=== PATIENT | female | born 1950 | race Hispanic/Latino ===

== ENCOUNTER 2022-09-04 21:02 | Observation (INO) | payer MEDICARE, SELFPAY ==
[2022-09-04] VITALS (8 sets, daily range): BP systolic 127–164; BP diastolic 75–96; PULSE 79–86; RESP 12–16; TEMP 36.4; O2SAT 94–100
--- NOTE | ~2022-09-04 | MR_ITS ---
EXAMINATION: MR brain/brain stem wo/w con DATE: 09/05/2022 08:00 INDICATION: Stroke TECHNIQUE: Magnetic resonance imaging (MRI) of the brain and brainstem was performed without and with 12 mL Multihance intravenous contrast. Sequences included sagittal and axial T1-weighted SE, axial d iffusion-weighted FS SE, axial T2*-weighted GRE, axial 3D SWAN, axial T2-weighted FLAIR, and axial T2 -weighted FSE. Postcontrast axial and coronal T1-weighted SE was obtained. Apparent diffusion coeffic ient (ADC) maps were created. COMPARISON: Head CT and CT angiogram dated 09/04/2022 FINDINGS: There are no areas of restricted diffusion to suggest acute infarction. No intracranial hemorrhage or abnormal intracranial mass lesion. There are scattered areas of nonspecific increased T2-weighted si gnal intensity in the cerebral white matter, predominantly involving the deep and periventricular whi te matter. There are no intraparenchymal signal abnormalities seen on the other pulse sequences. The ventricles are symmetric and normal in size. There are no abnormal extra-axial fluid collections. Aayush w voids are seen in the cerebral arteries on the T2-weighted sequences consistent with their expected patency. Changes of bilateral intraocular lens replacement. Visualized orbits and soft tissues are unremarkable. There are no areas of abnormal enhancement on the post contrast images. IMPRESSION: 1. No acute intracranial process. 2. Mild to moderate scattered nonspecific white matter T2 hyperintensity with periventricular predomi nance consistent with chronic small vessel ischemic disease. Reviewed, dictated and finalized at location A. IMPRESSION: 1. No acute intracranial process. 2. Mild to moderate scattered nonspecific white matter T2 hyperintensity with p eriventricular predominance consistent with chronic small vessel ischemic disea se.
--- NOTE | ~2022-09-04 | CT_ITS ---
CT ANGIOGRAM NECK AND HEAD History: TIA. Technique: Axial noncontrast imaging of the brain was performed. Serial spiral axial images through t he head and neck were than obtained during arterial phase IV injection of 100 cc of Omnipaque 350. 3- D postprocessing and MIP images were then reconstructed on the remote workstation. Dose reduction valerie hnique was used on this scan by utilizing automated exposure control and iterative reconstruction valerie hnique. The dose-length product (DLP) was 1631.27 mGy-cm. CTA neck findings: Bilateral vertebral arteries are patent. Bilateral common carotid, internal carot id, and external carotid arteries are patent. There is small calcified plaques at the proximal internet sales manager al carotid arteries bilaterally without stenosis. The proximal right internal carotid artery demonstr ates 0% stenosis relative to the normal distal artery lumen diameter. The proximal left internal deleon tid artery demonstrates 0% stenosis relative to the normal distal artery lumen diameter. CTA head findings: Distal vertebral arteries, basilar artery, and posterior cerebral arteries are pat ent. Distal internal carotid arteries, middle cerebral arteries, and anterior cerebral arteries are p atent. No large vessel occlusion. There are atherosclerotic calcifications in the cavernous portions of the distal internal carotid arteries bilaterally with areas of hlup-xq-ffooeyiy stenosis. No aneur ysm identified. Axial noncontrast imaging of the brain demonstrate mild scattered areas of low-attenuation the perive ntricular white matter, consistent with mild chronic microvascular ischemic change. No acute infarct, intracranial hemorrhage, or mass lesion seen. Ventricles and subarachnoid spaces are unremarkable. G ray-white differentiation is otherwise preserved. Impression: Areas of mild to moderate stenosis in the bilateral cavernous portions of the distal internal carotid arteries related to atherosclerotic calcifications. No other significant abnormality evident. Reviewed, dictated and finalized at location M. Impression: Areas of mild to moderate stenosis in the bilateral cavernous portions of the d istal internal carotid arteries related to atherosclerotic calcifications. No other significant abnormality evident.
--- NOTE | ~2022-09-04 | XR_ITS ---
EXAMINATION: XR chest 1V portable Exam Date/Time: 09/04/2022 22:27 CDT HISTORY: TIA Comparison: None. RESULT: Lines, tubes, and devices: None. Lungs and pleura: Clear. Cardiomediastinal silhouette: Unremarkable. Other: No acute osseous or upper abdominal finding. IMPRESSION: No acute cardiopulmonary process. Reviewed, dictated and finalized at location K.
--- NOTE | 2022-09-04 21:24 | ECG_ITS ---
Measurements Intervals [place] Rate: 80 P: 17 IA: 186 QRS: -2 QRSD: 97 T: -3 QT: 408 QTc: 471 Interpretive Statements SINUS RHYTHM BORDERLINE T WAVE ABNORMALITY- ANT/INF LEADS BORDERLINE ECG NO PREVIOUS ECG AVAILABLE FOR COMPARISON Electronically Signed On 09-05-2022 6:40:46 CDT by Efrain Vazquez D.O.
[2022-09-04 21:31] LABS: Glucose Point of Care 75 mg/dl (65-105)
[2022-09-04 22:18] LABS: Basophils Absolute Auto 0.1 K/mm3 (0.0-0.1); Basophils Percent Auto 0.6 % (0.2-1.2); Eosinophils Absolute Auto 0.2 K/mm3 (0-0.3); Eosinophils Percent Auto 1.4 % (0-4.4); Hematocrit 45.7 % (37.0-47.0); Hemoglobin 15.7 g/dL (12.0-15.0); Immature Granulocyte Absolute 0.06 K/mm3 (0.00-0.031); Immature Granulocyte Percent A 0.5 % (0-0.5); Lymphocytes Absolute Auto 2.34 K/mm3 (0.9-3.2); Lymphocytes Percent Auto 21.1 % (18.3-44.2); Mean Corpuscular HGB Conc 34.4 g/dl (32-36); Mean Corpuscular Volume 87.4 fl (80-100); Mean Platelet Volume 9.4 fl (7.4-10.4); Monocytes Absolute Auto 0.8 K/mm3 (0.1-0.6); Monocytes Percent Auto 7.1 % (2.6-8.5); Neutrophils Absolute Auto 7.7 K/mm3 (1.3-6.7); Neutrophils Percent Auto 69.3 % (45.5-73.1); Platelet Count Result 267 k/mm3 (150-375); Red Blood Count 5.23 M/mm3 (4.2-5.4); Red Cell Distribution Width 13.6 % (11.5-14.5); White Blood Count 11.1 K/mm3 (4.5-10.0)
--- NOTE | 2022-09-04 22:30 | ED.GENADULT ---
HPI - General Adult General Chief complaint: Dizziness Stated complaint: confusion Time Seen by Provider: 09/04/22 21:43 History of Present Illness HPI narrative: This is a 72-year-old female history hypertension diabetes presenting ED for an episode of dizziness and dysphagia. Patient was talking her at 8:00 p.m. when she became nauseous, felt dizzy and was having difficulty speaking. This lasted for approximately 5 minutes before resolved on its own. Patient then came to emergency room because her was concerned and wanted her to be checked out. At this time the patient has no complaints. FOR[facility]LY [facility], LATER [facility] Past Medical History Medical History Diabetes Hypertension Exam Narrative: APPEARANCE: No apparent distress. patient is polite and pleasant during the interview Head: atraumatic. EYES: EOMI, NOSE: Atraumatic NECK: Trachea midline RESPIRATORY: No increased rate of breathing CARDIOVASCULAR: RRR, ABDOMINAL: Non-distended MUSCULOSKELETAl: No obvious deformities NEURO: Alert. Cranial nerves 2-12 grossly intact. Sensation light touch, motor function cerebellar function intact for 4 extremities. Gait exam was normal. SKIN:: Warm, dry. Normal color PSYCHIATRIC: Normal affect NIH Stroke Scale/Score (NIHSS) from [email or web address] on 09/04/2022 All calculations should be rechecked by clinician prior to use RESULT SUMMARY: 0 points NIH Stroke Scale INPUTS: 1A: Level of consciousness ?> 0 = Alert; keenly responsive 1B: Ask month and age ?> 0 = Both questions right 1C: 'Blink eyes' & 'squeeze hands' ?> 0 = Performs both tasks 2: Horizontal extraocular movements ?> 0 = Normal 3: Visual goldman ?> 0 = No visual loss 4: Facial palsy ?> 0 = Normal symmetry 5A: Left arm motor drift ?> 0 = No drift for 10 seconds 5B: Right arm motor drift ?> 0 = No drift for 10 seconds 6A: Left leg motor drift ?> 0 = No drift for 5 seconds 6B: Right leg motor drift ?> 0 = No drift for 5 seconds 7: Limb Ataxia ?> 0 = No ataxia 8: Sensation ?> 0 = Normal; no sensory loss 9: Language/aphasia ?> 0 = Normal; no aphasia 10: Dysarthria ?> 0 = Normal 11: Extinction/inattention ?> 0 = No abnormality Course Vital Signs Vital signs: Vital Signs Temperature 97.5 F L 09/04/22 21:07 Pulse Rate 84 09/04/22 21:07 Respiratory Rate 16 09/04/22 21:07 Blood Pressure 150/86 H 09/04/22 21:07 Pulse Oximetry 100 09/04/22 21:07 Temperature 97.5 F L 09/04/22 21:07 Pulse Rate 88 09/05/22 01:40 Respiratory Rate 16 09/05/22 01:40 Blood Pressure 134/84 09/05/22 01:40 Pulse Oximetry 100 09/05/22 01:40 Medical Decision Making MDM Narrative Medical decision making narrative: -Presentation: This is a 72-year-old female presenting with a 5 minute episode of Word-finding difficulty, dizziness and nausea. This occurred at 8:00 p.m.. NIH on arrival is 0. -DDX includes but is not limited to: TIA, CVA, peripheral vertigo -Co-morbidities complicating care: hypertension, diabetes -Social determinants of health: patient is retired messenger office, lives w/ her Clement -Hx from independent Sources: at bedside -Discussion of Management/Consultants: Juan Obando - hospitalist, Ion - Neuro -Independent interpretation of studies: CBC and metabolic panel within normal limits. Chest x-ray is unremarkable. CTA of the head and neck was unremarkable. Independent EKG interpretation: Rhythm [sinus], Rate [80], Jackson -[normal], NJ -[normal], QRS [narrow], QTC [normal], T waves -[negative for concerning inversions], ST Segments - [Negative for concerning elevations] Final interpretations: [Normal Sinus Rhythm] -Procedures: None -Interventions: aspirin -Shared decision making / Disposition: patient be admitted to the hospital for TIA workup. -RX Vital Signs Vital Signs: Vital Signs Temperature 97.5 F L 09/04/22 21:07 Pulse Rate 8
[2022-09-04 22:35] LABS: Alanine Aminotransferase 36 U/L (6-35); Albumin Level 5.1 g/dL (3.5-5.1); Alkaline Phosphatase 55 U/L (38-126); Anion Gap 15 mmol/L (8-16); Aspartate Amino Transferase 59 U/L (14-36); Bilirubin,Total 0.8 mg/dL (0.2-1.3); Blood Urea Nitrogen 24 mg/dL (7-17); Calcium 9.7 mg/dL (8.4-10.2); Carbon Dioxide 22 mmol/L (22-30); Chloride 103 mmol/L (98-107); Estimated CRCL calculation 31 ml/min; Estimated Glomerular Filt Rate 44; Glucose 63 mg/dL (65-110); Potassium 4.1 mmol/L (3.4-5.0); Sodium 140 mmol/L (137-145)
[2022-09-04 23:34] LABS: Magnesium 1.4 mg/dL (1.6-2.3)
[2022-09-05] VITALS (10 sets, daily range): BP systolic 134–188; BP diastolic 84–87; PULSE 70–89; RESP 13–20; TEMP 36.1–36.4; O2SAT 93–100; BMI 25.7
--- NOTE | 2022-09-05 01:56 | ECHO_ITS ---
Patient Info Name: Leyda Holcomb Age: 72 years : 1950 Gender: Female Ht: 62 in Wt: 140 lbs BSA: 1.68 m2 HR: 77 bpm BP: 180 / 87 mmHg Technical Quality: Good Exam Date: 09/05/2022 4:13 PM Exam Location: [facility] Pulmonary Exam Room: [facility] Patient Status: Outpatient Admit Date: 09/05/2022 Staff Ordering Physician: Jessica Krishnan M.A., MD [facility] Physicist: Carolina Lindquist RDCS Attending Provider: Chai Soto MD Referring Physician: Juan ALCOCER; Exam Type: CA echo doppler color flow Study Info Indications - syncope Complete two-dimensional, color flow and Doppler transthoracic echocardiogram is performed. Summary 1. Complete two-dimensional, color flow and Doppler transthoracic echocardiogram is performed. 2. Left ventricular chamber dimension is normal. 3. Left ventricular systolic function is normal, estimated at 60-65%. 4. The left ventricular diastolic function is grade I diastolic dysfunction. 5. E/e' 15 is elevated. 6. There is trace mitral valve regurgitation. 7. No pulmonary hypertension, estimated pulmonary arterial systolic pressure is 21 mmHg. Left Ventricle E/e' 15 is elevated. Left ventricular chamber dimension is normal. Left ventricular systolic function is normal, estimated at 60-65%. The left ventricular diastolic function is grade I diastolic dysfunction. Right Ventricle Right ventricular chamber dimension is normal. Right ventricular systolic function is normal. Left Atria Left atrial chamber dimension is normal. Right Atria Right atrial chamber dimension is normal. Aortic Valve The aortic valve is trileaflet. There is no aortic valve stenosis. There is no aortic valve regurgitation. Pulmonic Valve There is no pulmonic regurgitation. Mitral Valve There is no mitral valve stenosis. There is trace mitral valve regurgitation. Tricuspid Valve There is no tricuspid valve regurgitation. No pulmonary hypertension, estimated pulmonary arterial systolic pressure is 21 mmHg. Pericardium/Pleural There is no pericardial effusion. Inferior Vena Cava Normal inferior vena cava with >50% collapse upon inspiration consistent with normal right atrial pressure, 5 mmHg. Aorta The aortic root size at the sinus of Valsalva is normal. Left Ventricular Outflow Tract Name Value Normal LVOT 2D LVOT Diameter 2.0 cm LVOT Doppler LVOT Peak Gradient 4 mmHg LVOT Mean Gradient 2 mmHg LVOT VTI 22 cm LVOT VTI/AV VTI Ratio 0.8 LVOT Stroke Volume 65 ml LVOT CO 12.2 l/min LVOT CI 7.3 l/min/m2 Pulmonic Valve Name Value Normal RVOT Doppler RVOT Peak Gradient 1 mmHg PV Doppler PV Peak Gradient
--- NOTE | 2022-09-05 01:58 | PM.IMHP ---
H&P: HPI History of Present Illness Date/Time: 09/05/22 01:58 Chief Complaint: 72 years old female with past medical history of hypertension hyperlipidemia diabetes mellitus presented to the hospital with episode of dizziness associated with confusion lasted for 5 minutes resolved completely before she came to the ER patient also has episodes of diarrhea for the past 2 weeks on also according to the hospital blood pressure was uncontrolled patient has history of Del Real's palsy patient denies similar episodes in the past denies fever or chills denies loss of consciousness CTA of head and neck pending report according to the ER physician negative for acute stroke patient will be admitted to the hospital for further evaluation and treatment of probable TIA neurology will be consulted echo and MRI of the brain is pending Review of Systems Review of Systems: Twelve system review negative except above PMFSH Past Medical History Medical History (Updated 09/05/22 @ 02:00 by Jsesica Krishnan MD) Brain TIA Diabetes Hypertension Meds Home Medications and Allergies Allergies Allergy/AdvReac Type Severity Reaction Status Date / Time No Known Allergies Allergy Verified 09/05/22 02:08 Vital Signs Vital Signs - 24 hr 09/04/22 21:07 09/04/22 22:01 09/04/22 22:31 Temperature 97.5 F L Pulse Rate 84 82 81 Respiratory Rate 16 12 15 Blood Pressure 150/86 H 164/96 H 127/75 Pulse Oximetry 100 94 09/04/22 22:45 09/04/22 23:12 09/04/22 23:15 Temperature Pulse Rate 79 84 84 Respiratory Rate 15 14 15 Blood Pressure Pulse Oximetry 99 100 100 09/04/22 23:30 09/04/22 23:51 09/05/22 00:00 Temperature Pulse Rate 86 Respiratory Rate 16 Blood Pressure Pulse Oximetry 97 100 09/05/22 00:15 09/05/22 00:32 09/05/22 00:45 Temperature Pulse Rate 79 85 Respiratory Rate 13 16 Blood Pressure Pulse Oximetry 98 100 93 09/05/22 01:05 09/05/22 01:40 Temperature Pulse Rate 89 88 Respiratory Rate 15 16 Blood Pressure 134/84 Pulse Oximetry 98 100 Exam Narrative: GENERAL: Well appearing, well-nourished, non-toxic, in no acute distress. HEAD: Normocephalic, atraumatic. NECK: Supple. No adenopathy, no masses. RESPIRATORY: Airway patent, respirations nonlabored. Clear to auscultation bilaterally, no rales, rhonchi, wheezing. CARDIOVASCULAR: Regular rate and rhythm without murmurs, rubs, or gallops. Peripheral pulses 2+ and equal bilaterally. ABDOMINAL: Soft, nontender, nondistended, no hepatosplenomegaly. Normoactive BS. MUSCULOSKELETAL: Moves all extremities. Strength/ROM intact without gross deformities or TTP. No edema. No calf tenderness. No chest wall tenderness palpation. SKIN: Warm, dry, normal color. No rashes. NEURO: A&O X3. Speech clear. Cranial nerves II-XII grossly intact. Steady gait. No ataxic movements. PSYCHIATRIC: Appropriate mood and affect. Normal interaction. H&P: Results Labs Labs: Short CBC 09/04/22 Range/Units 21:44 WBC 11.1 H (4.5-10.0) K/mm3 Hgb 15.7 H (12.0-15.0) g/dL Hct 45.7 (37.0-47.0) % Plt Count 267 (150-375) k/mm3 BMP 09/04/22 21:44 Sodium 140 Potassium 4.1 Chloride 103 Carbon Dioxide 22 BUN 24 H Creatinine 1.20 H Glucose 63 L Calcium 9.7 Liver Function 09/04/22 Range/Units 21:44 Total Bilirubin 0.8 (0.2-1.3) mg/dL AST 59 H (14-36) U/L ALT 36 H (6-35) U/L Alkaline Phosphatase 55 (38-126) U/L Albumin 5.1 (3.5-5.1) g/dL Assessment and Plan Assessment and plan (1) Hypertension: Code(s): I10 - Essential (primary) hypertension Status: Acute Assessment and Plan: Permissive hypertension for now due to TIA (2) Diabetes: Code(s): E11.9 - Type 2 diabetes mellitus without complications Status: Acute Assessment and Plan: Insulin sliding scale pending home medication reconciliation (3) Hyperlipidemia: Code(s): E78.5 - Hyperlipidem
[2022-09-05] MEDS: ASPIRIN 81 MG CHEWABLE TABLET 324 MG PO (02:39)
[2022-09-05 02:41] LABS: Glucose Point of Care 91 mg/dl (65-105)
--- NOTE | 2022-09-05 03:01 | ADMGEN ---
This patient, Leyda Holcomb, was admitted to [facility] Surg Room 315-02. Patient/family oriented to hospital policies and general routines including ID bracelet, bed and alarms, visiting hours, pain management, procedures, bathroom and other care routines, personal items, smoking policy, room service/diet, and visiting hours. Information on how to activate the Rapid Response Team has been discussed. Patient/Family are encouraged to report perceived risks to care and to ask questions if they do not understand what they are told or what they should do.
[2022-09-05 03:51] LABS: Basophils Absolute Auto 0.1 K/mm3 (0.0-0.1); Basophils Percent Auto 0.7 % (0.2-1.2); Eosinophils Absolute Auto 0.1 K/mm3 (0-0.3); Hematocrit 40.7 % (37.0-47.0); Hemoglobin 14.1 g/dL (12.0-15.0); Immature Granulocyte Absolute 0.05 K/mm3 (0.00-0.031); Immature Granulocyte Percent A 0.6 % (0-0.5); Lymphocytes Absolute Auto 2.49 K/mm3 (0.9-3.2); Mean Corpuscular HGB Conc 34.6 g/dl (32-36); Mean Corpuscular Hemoglobin 29.8 pg (26-34); Mean Platelet Volume 8.9 fl (7.4-10.4); Monocytes Absolute Auto 0.5 K/mm3 (0.1-0.6); Monocytes Percent Auto 6.2 % (2.6-8.5); Neutrophils Absolute Auto 5.4 K/mm3 (1.3-6.7); Neutrophils Percent Auto 62.5 % (45.5-73.1); Platelet Count Result 231 k/mm3 (150-375); Red Blood Count 4.73 M/mm3 (4.2-5.4); Red Cell Distribution Width 13.4 % (11.5-14.5); White Blood Count 8.6 K/mm3 (4.5-10.0)
[2022-09-05 04:03] LABS: Cholesterol 98 mg/dL (0-200); HDL Direct 37 mg/dL; Triglycerides 84 mg/dL (<150)
[2022-09-05 04:14] LABS: LDL Cholesterol Direct 42 mg/dL
[2022-09-05 04:18] LABS: Alanine Aminotransferase 31 U/L (6-35); Albumin Level 4.2 g/dL (3.5-5.1); Alkaline Phosphatase 49 U/L (38-126); Anion Gap 10 mmol/L (8-16); Aspartate Amino Transferase 42 U/L (14-36); Bilirubin,Total 0.5 mg/dL (0.2-1.3); Blood Urea Nitrogen 24 mg/dL (7-17); Calcium 9.2 mg/dL (8.4-10.2); Carbon Dioxide 26 mmol/L (22-30); Chloride 101 mmol/L (98-107); Estimated CRCL calculation 32 ml/min; Estimated Glomerular Filt Rate 49; Glucose 68 mg/dL (65-110); Potassium 3.8 mmol/L (3.4-5.0); Sodium 137 mmol/L (137-145)
[2022-09-05 08:10] LABS: Glucose Point of Care 57 mg/dl (65-105)
--- NOTE | 2022-09-05 08:14 | PC.NURSE ---
Blood sugar 57. Snack provided per pt request. Breakfast trays available at this time. Will monitor.
[2022-09-05] MEDS: SIMVASTATIN 20 MG TABLET 40 MG PO (09:11)
[2022-09-05] MEDS: ASPIRIN 81 MG ENTERIC TABLET PO (09:11)
[2022-09-05] MEDS: FAMOTIDINE 20 MG TABLET PO (09:11)
--- NOTE | 2022-09-05 09:49 | WPDNEURCNPN ---
Assessment and Plan Assessment and plan (1) Lightheadedness: Code(s): R42 - Dizziness and giddiness Status: Acute (2) Hyperlipidemia: Code(s): E78.5 - Hyperlipidemia, unspecified Status: Acute (3) Hypertension: Code(s): I10 - Essential (primary) hypertension Status: Acute (4) Diabetes: Code(s): E11.9 - Type 2 diabetes mellitus without complications Status: Acute Plan Leyda Holcomb is a 72 year old female with a history of hypertension, hyperlipidemia, diabetes presenting due to concerns for dizziness/lightheadedness that self-resolved within a few minutes. MRI brain is negative for acute stroke. Patient reports diarrhea with some concerns for dehydration. Seems more likely to be presyncopal episode. Patient vehemently denies any involvement of her speech. - We discussed the option of continuing aspirin since she has multiple stroke risk factors - Continue rosuvastatin 20mg daily - Surface echocardiogram pending - Ok to discharge after echocardiogram Consult date: 09/05/22 Reason for consult: TIA HPI: Leyda Holcomb is a 72 year old female with a history of hypertension, hyperlipidemia, diabetes presenting due to concerns for dizziness and lightheadedness. Patient's last known well is 09/04 around 8pm. She developed at that time, dizziness and lightheadedness. Patient denies any word finding difficulties or slurred speech. The episode lasted about five minutes and then self-resolved. When she presented to the ED her NIH score was 0. Her blood pressure was in the 130-150s. Her EKG showed normal sinus rhythm. LDL is 43. CT head was unrevealing. CTA showed areas of mild to moderate stenosis in bilateral cavernous portions of distal internal carotid arteries related to atherosclerotic calcifications. She has also had an MRI brain which was negative for acute stroke. She was not take aspirin, but has been started on it during this admission. She does already take rosuvastatin 20mg daily. Patient reports that she has had diarrhea for the past week, and has not been hydrating as well as she should. She has also been nauseated lately. Review of Systems Constitutional: Constitutional: Denies chills, Denies fever(s) and Denies weight loss Eyes: Eyes: Denies diplopia and Denies loss of vision ENT: Reports dizziness, Denies hearing loss and Denies tinnitus Cardiovascular: Cardiovascular: Denies chest pain, Denies syncope and Denies dyspnea Respiratory: Respiratory: Denies cough, Denies dyspnea and Denies wheezing Gastrointestinal: Gastrointestinal: Denies abdominal pain, Denies change in bowel habits, Reports diarrhea, Reports nausea and Denies vomiting Genitourinary: Genitourinary: Denies urinary incontinence Musculoskeletal: Musculoskeletal: Denies arthralgias and Denies joint swelling Integumentary/Breasts: Skin/Breast: Denies new lesions and Denies rash Neurologic: Reports as per HPI, Denies dizziness, Denies syncope and Denies loss of vision Psychiatric: Psychiatric: Denies anxiety and Denies depression Endocrine: Endocrine: Denies cold intolerance and Denies heat intolerance Hematologic/Lymphatic: Hematologic/Lymphatic: Denies easy bleeding and Denies easy bruising Allergic/Immunologic: Allergic/Immunologic: Denies no additional allergic/immunologic complaints and Denies wheezing PMFSH Past Medical History Medical History Brain TIA Diabetes Hypertension Social History Social History Smoking status: Never smoker Alcohol intake: never Substance use: never Substance use type: does not use Lack of Transportation: No Lack of Food: Never True Current Housing: I Have Housing Concerned About Future Housing: No Difficulty Paying Gas/Electric Bills: No Difficulty Paying for Meds: No Currently Unemployed: No Education: High School Diploma/
[2022-09-05 11:53] LABS: Glucose Point of Care 221 mg/dl (65-105)
[2022-09-05] MEDS: INSULIN ASPART (*BKC) 100 UNITS/ML SUB-Q (13:02)
--- NOTE | 2022-09-05 14:09 | PM.DS ---
DS: Admitting Diagnosis Discharge Date 09/05/2022 Admitting Diagnosis Dizziness DS: Discharge Diagnosis Discharge Diagnosis (1) Lightheadedness: Code(s): R42 - Dizziness and giddiness Status: Acute (2) Hyperlipidemia: Code(s): E78.5 - Hyperlipidemia, unspecified Status: Acute (3) Hypertension: Code(s): I10 - Essential (primary) hypertension Status: Acute (4) Diabetes: Code(s): E11.9 - Type 2 diabetes mellitus without complications Status: Acute DS: Summary Hospital Course Hospital Course: Leyda Holcomb is a 72 year old female with a history of hypertension, hyperlipidemia, diabetes presenting due to concerns for dizziness and lightheadedness. Patient's last known well is 09/04 around 8pm. She developed at that time, dizziness and lightheadedness. Patient denies any word finding difficulties or slurred speech. The episode lasted about five minutes and then self-resolved. When she presented to the ED her NIH score was 0. Her blood pressure was in the 130-150s. Her EKG showed normal sinus rhythm. LDL is 43. CT head was unrevealing. CTA showed areas of mild to moderate stenosis in bilateral cavernous portions of distal internal carotid arteries related to atherosclerotic calcifications. She has also had an MRI brain which was negative for acute stroke. She was not take aspirin, but has been started on it during this admission. She does already take rosuvastatin 20mg daily. Patient reports that she has had diarrhea for the past week, and has not been hydrating as well as she should. She has also been nauseated lately. Neurology was consulted. mRI brain is negative for acute stroke. Seems more likely to be presyncopal episode. - We discussed the option of continuing aspirin since she has multiple stroke risk factors - Continue rosuvastatin 20mg daily - Surface echocardiogram pending - Ok to discharge after echocardiogram Time Spent with Patient Time attestation: Total time spent providing and/or coordinating discharge services: Exam Narrative: GENERAL: Well appearing, well-nourished, non-toxic, in no acute distress. HEAD: Normocephalic, atraumatic. NECK: Supple. No adenopathy, no masses. RESPIRATORY: Airway patent, respirations nonlabored. Clear to auscultation bilaterally, no rales, rhonchi, wheezing. CARDIOVASCULAR: Regular rate and rhythm without murmurs, rubs, or gallops. Peripheral pulses 2+ and equal bilaterally. ABDOMINAL: Soft, nontender, nondistended, no hepatosplenomegaly. Normoactive BS. MUSCULOSKELETAL: Moves all extremities. Strength/ROM intact without gross deformities or TTP. No edema. No calf tenderness. No chest wall tenderness palpation. SKIN: Warm, dry, normal color. No rashes. NEURO: A&O X3. Speech clear. Cranial nerves II-XII grossly intact. Steady gait. No ataxic movements. PSYCHIATRIC: Appropriate mood and affect. Normal interaction. DS: Data Data Completed and Pending Labs on day of discharge: Labs from last 24 hours 09/05/22 09/05/22 09/05/22 11:50 08:06 03:28 WBC 8.6 RBC 4.73 Hgb 14.1 Hct 40.7 MCV 86.0 MCH 29.8 MCHC 34.6 RDW 13.4 Plt Count 231 MPV 8.9 Immature Gran % (Auto) 0.6 H Neut % (Auto) 62.5 Lymph % (Auto) 29.0 Mckean % (Auto) 6.2 Eos % (Auto) 1.0 Baso % (Auto) 0.7 Lymph # (Auto) 2.49 Mckean # (Auto) 0.5 Eos # (Auto) 0.1 Baso # (Auto) 0.1 Abs Immat Gran (auto) 0.05 H Absolute Neuts (auto) 5.4 Absolute Nucleated RBC 0.0 Nucleated RBC % 0.0 Sodium 137 Potassium 3.8 Chloride 101 Carbon Dioxide 26 Anion Gap 10 BUN 24 H Creatinine 1.10 H Estim Creat Clear Calc 32 Estimated GFR 49 L Glucose 68 POC Capillary Glucose 221 H 57 L* Calcium 9.2 Magnesium Total Bilirubin 0.5 AST 42 H ALT 31 Alkaline Phosphatase 49 Total Protein 7.0 Albumin 4.2 Triglycerides 84 Cholesterol 98 LDL Cholesterol
[2022-09-05 16:24] LABS: Glucose Point of Care 212 mg/dl (65-105)
== END 2022-09-05 17:13 | disposition home or self-care (01) ==
LOC: ANHED 09-05 01:56 → ANH3MEDSUR 09-05 02:32
PROVIDERS: Emergency Medicine; Admitting Provider Internal Medicine; Emergency Provider Emergency Medicine; Visit Provider Hospitalist
DX: R42 Dizziness and giddiness (principal); E78.5 Hyperlipidemia, unspecified; R13.10 Dysphagia, unspecified; I11.9 Hypertensive heart disease without heart failure; E11.9 Type 2 diabetes mellitus without complications; I65.23 Occlusion and stenosis of bilateral carotid arteries; R11.0 Nausea; R47.1 Dysarthria and anarthria; Z86.73 Personal history of transient ischemic attack (TIA), and cerebral infarction without residual deficits; Z79.84 Long term (current) use of oral hypoglycemic drugs; Z79.4 Long term (current) use of insulin; Z79.899 Other long term (current) drug therapy
CPT/HCPCS: 36415; 70496; 70498; 70553; 71045; 80053; 80061; 82948; 83735; 85025; 92610; 93005; 93306; 97161; 99285; A9270; A9577; G0378; J1815; Q9967